=== PATIENT | female | born 1995 | race Caucasian/White ===

== ENCOUNTER 2024-05-13 13:36 | Emergency (ER) | payer OTHER ==
[~2024-05-13] VITALS: Ht 162.6 cm; Wt 54.4 kg
[2024-05-13 15:56] VITALS: BP 127/80; TEMP 98; O2SAT 99
== END 2024-05-13 15:56 | disposition home or self-care (01) ==
LOC: ER 13:42
DX: F10.129 Alcohol abuse with intoxication, unspecified (principal); F31.9 Bipolar disorder, unspecified; Y90.9 Presence of alcohol in blood, level not specified
CPT/HCPCS: 98960